=== PATIENT | female | born 1950 | race Caucasian/White ===

== ENCOUNTER → 2016-06-09 | Outpatient (CLI) | payer OTHER ==
--- NOTE | 2016-06-09 16:03 | RAD ---
DATE: 06/09/2016 EXAM: DIGITAL SCREEN BILAT W/CAD HISTORY: Screening COMPARISON: 02/21/2015 This study was interpreted with the benefit of Computerized Aided Detection (CAD). FINDINGS: The breast parenchyma shows scattered fibroglandular densities. Breast parenchyma level B. There is a possible nodule seen in the left breast on the cc view. Cone compression imaging and rolled CC views are suggested. Depending on the results of diagnostic mammography targeted ultrasound may be advised. The right breast appears unchanged. IMPRESSION: Possible developing nodule left breast. BI-RADS CATEGORY: 0 INCOMPLETE: NEED ADDITIONAL IMAGING EVAULATION AND/OR PRIOR MAMMOGRAMS FOR COMPARISON RECOMMENDED FOLLOW-UP: ADD ADDITIONAL IMAGING PQRS compliance statement: Patient information was entered into a reminder system with a target due date soon for the next mammogram. Mammography is a sensitive method for finding small breast cancers, but it does not detect them all and is not a substitute for careful clinical examination. A negative mammogram does not negate a clinically suspicious finding and should not result in delay in biopsying a clinically suspicious abnormality. "Our facility is accredited by the [employer] Mammography [employer]."
== END | disposition home or self-care (01) ==
LOC: MAMMO 14:51
PROVIDERS: ATTEND Obstetrics & Gynecology
DX: Z12.31 Encounter for screening mammogram for malignant neoplasm of breast (principal)
CPT/HCPCS: G0202; 77067

== ENCOUNTER → 2016-06-18 | Outpatient (CLI) | payer OTHER ==
--- NOTE | 2016-06-18 14:56 | RAD ---
DATE: 06/18/2016 EXAM: DIGITAL DIAGNOSTIC LT, BREAST LEFT HISTORY: Suspicious screening study COMPARISON: 06/09/2016, 02/21/2015 This study was interpreted with the benefit of Computerized Aided Detection (CAD). FINDINGS: On the 06/09/2016 study a small nodule was noted projected laterally in the left breast on the cc view. Spot compression and straight mediolateral views of that region were obtained today. This nodule is actually best delineated on image 42 of the original CC mammographic view from 06/09/2016. It measures approximate 6 mm in greatest diameter. Its margins are minimally lobulated. This nodule was also present in retrospect on the cc tomogram view of the 02/21/2015 study and appears of to be of similar size. There are several other smaller smooth nodules in the lateral aspect of the left breast on both the 02/21/2015 and 06/09/2016 sonographic studies, which show no definite change. Left breast ultrasound, 06/18/2016: A targeted ultrasound exam of the upper outer quadrant of the left breast was performed. At the 2:00 location there is a small oval-shaped hypoechoic nodule located approximate 6 cm from the nipple. It measures 5 x 3 x 2 mm. Its margins are smooth. No internal color flow is seen. It is wider than it is tall. This is probably a small fibroadenoma or complicated cyst. It appears to correspond to the above described nodule seen on the mammograms. IMPRESSION: 1. Small benign-appearing left breast nodule at the 2:00 location which is probably a complicated cyst or fibroadenoma. 2. Several other stable small smooth left breast nodules were also identified mammographically. 3. Follow-up left mammography in 6 months and bilateral mammography at one year is suggested to confirm stability. BI-RADS CATEGORY: 3 PROBABLY BENIGN FINDING(S)-SHORT INTERVAL FOLLOW-UP SUGGESTED RECOMMENDED FOLLOW-UP: 6M 6 MONTH FOLLOW-UP PQRS compliance statement: Patient information was entered into a reminder system with a target due date for the next mammogram. Mammography is a sensitive method for finding small breast cancers, but it does not detect them all and is not a substitute for careful clinical examination. A negative mammogram does not negate a clinically suspicious finding and should not result in delay in biopsying a clinically suspicious abnormality. "Our facility is accredited by the [employer] Mammography [employer]."
== END | disposition home or self-care (01) ==
LOC: MAMMO 13:02
PROVIDERS: ATTEND Obstetrics & Gynecology
DX: N63 Unspecified lump in breast (principal); R92.8 Other abnormal and inconclusive findings on diagnostic imaging of breast
CPT/HCPCS: 76641; G0206; 77065